=== PATIENT | female | born 1975 | race Caucasian/White ===

== ENCOUNTER → 2024-01-19 06:29 | Day surgery (SDC) | payer BC, SELFPAY | LOC: GI 06:29 | PROVIDERS: ATTENDING PHYSICIAN Internal Medicine Gastroenterology | DX: Z12.11 Encounter for screening for malignant neoplasm of colon (principal); K64.8 Other hemorrhoids; Q43.8 Other specified congenital malformations of intestine | CPT/HCPCS: G0121 ==

== ENCOUNTER → 2024-09-19 16:15 | Outpatient (REF) | payer BC, SELFPAY | LOC: RAD 16:15 | PROVIDERS: ATTENDING PHYSICIAN Physician Assistant Medical | DX: R10.10 Upper abdominal pain, unspecified (principal); R14.0 Abdominal distension (gaseous); R63.0 Anorexia | CPT/HCPCS: 74177; Q9967 ==

== ENCOUNTER → 2025-08-01 10:59 | Outpatient (REF) | payer OTHER, SELFPAY | LOC: OHS 10:59 | PROVIDERS: ATTENDING PHYSICIAN Nurse Practitioner Family | DX: Z23 Encounter for immunization (principal) | CPT/HCPCS: 36415; 86480; 86706; 86787 ==